=== PATIENT | male | born 1965 | race Asian ===

== ENCOUNTER 2017-09-29 19:44 | Emergency (ER) | payer OTHER ==
[~2017-09-29] VITALS: Ht 177.8 cm; Wt 100.0 kg
[~2017-09-29 19:44] MED LIST: ALLO300 PO; AMIT25TA9 PO; AMLO-511 PO; ARIP15TA2 PO; FOLI1TAB15 PO; GABA-318 PO; GABA600T PO; HYDR-4031 PO; MIRT30TA6 PO
[2017-09-29] MEDS ORDERED: HYDR-4031 PO (19:47)
[2017-09-29 19:55] VITALS: BP 203/126
== END 2017-09-29 20:30 | disposition left against medical advice (07) ==
LOC: EMS 19:45
DX: Z53.21 Procedure and treatment not carried out due to patient leaving prior to being seen by health care provider (principal)
CPT/HCPCS: 93005

== ENCOUNTER 2023-11-21 19:54 | Emergency (ER) | payer MEDICAID, OTHER ==
[~2023-11-21] VITALS: Ht 177.8 cm; Wt 95.5 kg
[~2023-11-21 19:54] MED LIST changes: -ALLO300 PO; -AMIT25TA9 PO; -AMLO-511 PO; -ARIP15TA2 PO; -FOLI1TAB15 PO; -GABA-318 PO; -GABA600T PO; +GABA600T10 PO; -HYDR-4031 PO; +HYDR-4808 PO; -MIRT30TA6 PO
[2023-11-21 19:57] VITALS: BP 144/76; PULSE 112; RESP 16; TEMP 97.9
[2023-11-21] MEDS ORDERED: CHLO25CA6 PO (22:26)
[2023-11-21] MEDS ORDERED: QUET25TA PO (22:26)
== END 2023-11-21 22:48 | disposition home or self-care (01) ==
LOC: EMS 19:57
DX: F10.20 Alcohol dependence, uncomplicated (principal); F41.9 Anxiety disorder, unspecified; F31.9 Bipolar disorder, unspecified; I10 Essential (primary) hypertension; R56.9 Unspecified convulsions; K21.9 Gastro-esophageal reflux disease without esophagitis; F17.210 Nicotine dependence, cigarettes, uncomplicated; Z76.0 Encounter for issue of repeat prescription
CPT/HCPCS: 99281; Z7502